=== PATIENT | female | born 1940 | race Caucasian/White ===

== ENCOUNTER → 2023-02-18 01:30 | Outpatient (BNVA) | payer BC, SELFPAY | PROVIDERS: Visit Provider Emergency Medicine | DX: N30.01 Acute cystitis with hematuria (principal) | CPT/HCPCS: 81000 ==

== ENCOUNTER 2024-01-24 13:16 | Outpatient (CLI) | payer BC, SELFPAY ==
[2024-01-24 14:09] LABS: Anion Gap 14.5 (5-19); Blood Urea Nitrogen 16 mg/dL (8-23); Calcium 9.1 mg/dL (8.5-10.5); Carbon Dioxide 26 mmol/L (22-29); Chloride 92 mmol/L (98-107); Glucose 99 mg/dL (65-115); Osmolality Calculated 265 mOsm/kg (285-295); Potassium 5.5 mmol/L (3.5-5.1); Sodium 127 mmol/L (136-145)
== END 2024-01-24 13:17 | disposition home or self-care (01) ==
DX: E87.1 Hypo-osmolality and hyponatremia (principal)
CPT/HCPCS: 36415; 80048

== ENCOUNTER 2024-02-20 14:10 | Outpatient (CLI) | payer BC, SELFPAY ==
[2024-02-20 15:12] LABS: Anion Gap 15.1 (5-19); Blood Urea Nitrogen 16 mg/dL (8-23); Calcium 8.9 mg/dL (8.5-10.5); Carbon Dioxide 26 mmol/L (22-29); Chloride 94 mmol/L (98-107); Glucose 88 mg/dL (65-115); Osmolality Calculated 271 mOsm/kg (285-295); Potassium 5.1 mmol/L (3.5-5.1); Sodium 130 mmol/L (136-145)
== END 2024-02-20 14:11 | disposition home or self-care (01) ==
LOC: LAB 14:20
DX: E87.1 Hypo-osmolality and hyponatremia (principal)
CPT/HCPCS: 36415; 80048

== ENCOUNTER 2024-03-06 14:34 | Emergency (ER) | payer MEDICARE, SELFPAY ==
[2024-03-06 15:22] VITALS: BP 114/62; PULSE 71; RESP 17; TEMP 36.8; O2SAT 100; BMI 28.7
--- NOTE | 2024-03-06 15:32 | ED_ITS ---
HPI - Back Pain/Injury General: Chief Complaint: Back Pain/Injury Stated Complaint: low back pain Time Seen by Provider: 03/06/24 15:31 History of Present Illness: 83-year-old female comes in today with l ow back pain. Patient has a history of chronic back pain due to the osteoarthritis. Patient reports that she was been visiting from [facility] and has been with her family since November. Patient reports that seems that her back pain has gotten worse since being here. Elizabeth ent does report a fall approximately 3 weeks ago onto her back. Patient appears nontoxic. Patient appears in mild pain at rest. Related Data Home Medications Medication Instructions Recorded Confirmed acetaminophen 325 mg capsule 325 mg PO QID PRN 02/18/23 02/18/23 albuterol sulfate 90 mcg/actuation 2 inh inhalation Q6H PRN 02/18/23 02/18/23 breath activated powder inhaler atorvastatin 80 mg tablet 80 mg PO DAILY 02/18/23 02/18/23 beclomethasone dipropionate 80 1 inh inhalation BID 02/18/23 02/18/23 mcg/actuation HFA breath activated aerosol (Qvar RediHaler) calcium carbonate 600 mg-vitamin cap PO 02/18/23 02/18/23 D3 62.5 mcg (2,500 unit) capsule cyanocobalamin (vitamin B-12) 1,000 mcg PO DAILY 02/18/23 02/18/23 1,000 mcg capsule cyclosporine 0.05 % eye drops in a 1 drp ophthalmic (eye) Q12H 02/18/23 02/18/23 dropperette ferrous sulfate 325 mg (65 mg 325 mg PO DAILY 02/18/23 02/18/23 iron) tablet (FeroSul) hydroxyzine HCl 25 mg tablet 25 mg PO QID PRN 02/18/23 02/18/23 levothyroxine 50 mcg capsule 50 mcg PO DAILY 02/18/23 02/18/23 levothyroxine 50 mcg tablet tab PO 02/18/23 02/18/23 lisinopril 10 mg tablet 10 mg PO BID 02/18/23 02/18/23 lisinopril 10 mg tablet tab PO 02/18/23 02/18/23 montelukast 10 mg tablet 10 mg PO DAILY 02/18/23 02/18/23 nitroglycerin 0.4 mg sublingual 0.4 mg sublingual Q5M PRN 02/18/23 02/18/23 tablet nystatin 100,000 unit/mL oral 100,000 unit PO DAILY 02/18/23 02/18/23 suspension pilocarpine HCl 5 mg tablet 5 mg PO TID 02/18/23 02/18/23 pilocarpine HCl 5 mg tablet tab PO 02/18/23 02/18/23 tiotropium bromide 2.5 2 puff inhalation DAILY 02/18/23 02/18/23 mcg/actuation mist for inhalation (Spiriva Respimat) Previous Rx's Medication Instructions Recorded cefdinir 300 mg capsule 300 mg PO BID 7 days #14 caps 02/18/23 celecoxib 100 mg capsule 100 mg PO BID #20 caps 03/06/24 Allergies Allergy/AdvReac Type Severity Reaction Status Date / Time lactose Allergy diarhhea Verified 02/18/23 14:14 Sulfa (Sulfonamide Allergy swelling Verified 02/18/23 14:14 Antibiotics) gluten meal Allergy GI upset Uncoded 02/18/23 14:14 Review of Systems General: Reports: 10 or more systems reviewed and unremarkable except in HPI and below Musc: Reports: back pain Physical Exam Const: COMMON NORMALS: alert HENMT: COMMON NORMALS: normocephalic HEAD & SCALP: normocephalic Neck/C-Spine: COMMON NORMALS: full ROM Chest: COMMONS NORMALS: normal palpation of entire chest wall Resp: COMMON NORMALS: normal respiratory effort and clear to auscultation bilaterally AUSCULTATION: clear to auscultation bilaterally Cardio: COMMON NORMALS: regular rate RATE: regular rate GI: COMMON NORMALS: non-tender Back/Pelvis: LUMBAR SPINE/LOWER BACK: Yes lumbar spinal tenderness Lumbar spinal tenderness location: L4 and L5 Extremity: COMMON NORMALS: normal to inspection Neuro: SENSORIUM/ORIENTATION: Yes alert Skin: COMMON NORMALS: turgor normal GENERAL SKIN EXAM: turgor normal Course Vital Signs: Vital signs: Vital Signs Temperature 98.3 F 03/06/24 15:22 Pulse Rate 66 03/06/24 16:31 Respiratory Rate 17 03/06/24 15:22 Blood Pressure 115/72 03/06/24 16:31 Pulse Oximetry 98 03/06/24 16:31 Oxygen Delivery Me thod Room Air 03/06/24 15:22 MDM - Back Pain/Injury Medical Decision Making 83-year-old female comes in today for complaints of low back pain. Patient reports increased back pain since arriving to [place] in November. Patient does have a history of osteoarthritis. Patient does also endorse a fall approxi mately 3 weeks ago. Patient appears nontoxic. Patient appears mild to moderate pain. Differential diagnosis includes osteoarthritis, vertebral compression fracture, intervertebral disc disease, facet arthritis. X-ray of the back noted significant degenerative disc disease but no signs of obvious fracture. Patient was given 1 [place] 5 in the emergency room for acute pain. Patient was also give n 10 mg dexamethasone. Patient will be continued on some celecoxib 100 mg twice a day to help with control of the pain. Patient knows to follow-up with primary care for further recommendations and treatment of pain. Labs Radiology Impressions Lumbar Spine X-Ray 03/06/24 15:38 Impression: There is scoliosis with diffuse degenerative disc disease of the lumbar spine. There is no anterior wedging or dominant subluxation. All radiology interpretation(s) finalized by discharge Discharge Plan Discharge Patient Disposition: Home Clinical Impression: Arthritis of facet joint of lumbar spine Condition: Stable Prescriptions: New celecoxib 100 mg capsule 100 mg PO BID Qty: 20 0RF No Action lisinopril 10 mg tablet PO pilocarpine HCl 5 mg tablet PO levothyroxine 50 mcg tablet PO acetaminophen 325 mg capsule 325 mg PO QID PRN albuterol sulfate 90 mcg/actuation aerosol powdr breath activated 2 inh inhalation Q6H PRN atorvastatin 80 mg tablet 80 mg PO DAILY calcium carbonate-vitamin D3 600 mg-62.5 mcg (2,500 unit) capsule PO cyanocobalamin (vitamin B-12) 1,000 mcg capsule 1,000 mcg PO DAILY cyclosporine 0.05 % dropperette 1 drp ophthalmic (eye) Q12H ferrous sulfate [FeroSul] 325 mg (65 mg iron) tablet 325 mg PO DAILY hydroxyzine HCl 25 mg tablet 25 mg PO QID PRN levothyroxine 50 mcg capsule 50 mcg PO DAILY lisinopril 10 mg tablet 10 mg PO BID montelukast 10 mg tablet 10 mg PO DAILY nitroglycerin 0.4 mg tablet, sublingual 0.4 mg sublingual Q5M PRN Rx Instructions: do not exceed 3 doses per episode nystatin 100,000 unit/mL suspension 100,000 unit PO DAILY Rx Instructions: administer 1/2 of dose in each side of the mouth pilocarpine HCl 5 mg tablet 5 mg PO TID Qvar RediHaler 80 mcg/actuation HFA aerosol breath activated 1 inh inhalation BID Spiriva Respimat 2.5 mcg/actuation mist 2 puff inhalation DAILY cefdinir 300 mg capsule 300 mg PO BID 7 Days Qty: 14 0RF Discharge Orders: Discharge ED (Routine); Ordered 03/06/24 Ordered By: Cayetano Valdovinos Discharge Diet: Usual diet Discharge Activity: Increase activity as tolerated Patient Instructions: Degenerative Disc Disease (ED) Activity Restrictions/Additional Instructions: Continue with acetaminophen as needed for pain. Use celecoxib for further pain and inflammation control. Drink plenty of water with medications. Follow-up with primary care for further instructions. Return to ED for new concerns. Coding Level of Care Code ED Senior Solutions Engineer for Krystal Mcnulty
--- NOTE | 2024-03-06 15:38 | XR_ITS ---
WS: [id number] Examination: XR lumbar spine 2-3V* 38243 Reason for Exam: fall injury Date: 03/06/2024 Comparison: None. Findings: The bone density is diminished. There is curvature of the spine with convexity to the right Diffuse degenerative disc disease is noted with disc space narrowing There is no anterior wedging or compression. There is no subluxation Anterior posterior osteophytes are present with prominent facet arthropathy. XR/XR lumbar spine 2-3V* [id number] Impression: There is scoliosis with diffuse degenerative disc disease of the lumbar spine. There is no anterior wedging or dominant subluxation.
[2024-03-06] MEDS: HYDROcodone-acetaminophen 5-325 mg Tablet 1 TAB PO (15:45)
[2024-03-06] MEDS: dexamethasone 10 mg/mL INJ IM (16:20)
[2024-03-06 16:31] VITALS: BP 115/72; PULSE 66; O2SAT 98
== END 2024-03-06 16:32 | disposition home or self-care (01) ==
PROVIDERS: Emergency Provider Nurse Practitioner Family
DX: M47.816 Spondylosis without myelopathy or radiculopathy, lumbar region (principal)
CPT/HCPCS: 72100; 96372; 99284; J1100

== ENCOUNTER 2025-05-19 13:07 | Emergency (ER) | payer MEDICARE, SELFPAY ==
--- NOTE | 2025-05-19 13:24 | XR_ITS ---
WS: [id number] XR chest 1V portable [id number] REASON FOR EXAM: Shortness of breath FINDINGS: Cardiac device overlying the left chest with trans left subclavian leads to the right atrium and right ventricular apex. Moderate tortuosity of the ascending and descending thoracic aorta with calcified aortic arch. Heart size is at the upper limits of normal. Elevation of the right hemidiaphragm. Calcified granulomatous disease bilaterally. No acute pulmonary parenchymal or pleural disease is identified. Mild levoscoliosis of the thoracic spine with moderate degenerative spondylosis and previous vertebroplasty in the lower thoracic spine. XR/XR chest 1V portable [id number] IMPRESSION: No acute chest abnormality.
--- NOTE | 2025-05-19 13:28 | ECG_ITS ---
[facility] Date: 2025-05-19 Pat Name: Rayna Brock Department: Room: Gender: Female Claims Director: : 1940 Requested By: Luciano Santos Order Number: [id number] Dasia MD: Lissa Lara M.D. Measurements Intervals [place] Rate: 67 P: 0 DC: 0 QRS: -73 QRSD: 134 T: 81 QT: 426 QTc: 450 Interpretive Statements ELECTRONIC VENTRICULAR PACEMAKER ABNORMAL RHYTHM ECG No previous ECG available for comparison Electronically Signed On 05-20-2025 08:51:17 SHEET COMBINING OPERATOR by Lissa Lara M.D. [email or web address] [id number]
[2025-05-19 13:30] VITALS: BP 136/87; PULSE 67; RESP 16; TEMP 36.8; O2SAT 100
[2025-05-19 13:38] LABS: Hematocrit 31.7 % (36-47); Hemoglobin 10.50 g/dL (11.27-16.99); Mean Corpuscular HGB Conc 33.1 g/dL (30-55); Mean Corpuscular Hemoglobin 34.0 pg (27-33); Mean Corpuscular Volume 102.6 fl (85-98); Nucleated Red Blood Cells % 0 %; Platelet Count 209 10^3/cmm (157-399); Red Blood Count 3.09 10^6/uL (3.85-5.65); White Blood Count 5.40 10^3/uL (3.29-11.43)
[2025-05-19 14:01] LABS: Troponin(5th) Baseline 25 ng/L (0-10)
[2025-05-19 14:02] LABS: Lactic Sepsis W/Reflex 1.0 mmol/L (0.5-2.2)
[2025-05-19 14:09] LABS: Alanine Aminotransferase 16 U/L (0-33); Albumin Level 4.4 g/dL (3.5-5.2); Alkaline Phosphatase 71 U/L (35-105); Anion Gap 17.9 (5-19); Aspartate Amino Transferase 12 U/L (0-32); Blood Urea Nitrogen 12 mg/dL (8-23); Calcium 9.1 mg/dL (8.5-10.5); Carbon Dioxide 24 mmol/L (22-29); Chloride 96 mmol/L (98-107); Globulin 2.2 g/dL (1.3-4.6); Glucose 85 mg/dL (65-115); NT Pro B Type Natriuretic Pept 1036 pg/mL (0-450); Osmolality Calculated 275 mOsm/kg (285-295); Potassium 4.9 mmol/L (3.5-5.1); Sodium 133 mmol/L (136-145); Total Protein 6.6 g/dL (6.6-8.7)
--- NOTE | 2025-05-19 14:32 | W.ED.SOB ---
HPI - SOB/Dyspnea General: Chief Complaint: Shortness of Breath/Dyspnea Stated Complaint: SOB Time Seen by Provider: 05/19/25 14:32 History of Present Illness: HPI Narrative: 84-year-old female presents emergency room chronic progressively worsening shortness of breath last several days. History of COPD she has tried using her rescue other at home several times has not been particularly helpful. Minimally productive cough no hemoptysis. No fever sweats or chills no orthopnea denies chest pain. Associated symptoms: Reports chest congestion; Deny abdominal pain, chest pain or fever(s) Related Data Home Medications ?Medication ?Instructions ?Recorded ?Confirmed acetaminophen 325 mg capsule 325 mg PO QID PRN 02/18/23 02/18/23 albuterol sulfate 90 mcg/actuation 2 inh inhalation Q6H PRN 02/18/23 02/18/23 breath activated powder inhaler atorvastatin 80 mg tablet 80 mg PO DAILY 02/18/23 02/18/23 beclomethasone dipropionate 80 1 inh inhalation BID 02/18/23 02/18/23 mcg/actuation HFA breath activated aerosol (Qvar RediHaler) calcium 600 mg (as cap PO 02/18/23 02/18/23 carbonate)-vitamin D3 62.5 mcg (2,500 unit) capsule cyanocobalamin (vitamin B-12) 1,000 mcg PO DAILY 02/18/23 02/18/23 1,000 mcg capsule cyclosporine 0.05 % eye drops in a 1 drp ophthalmic (eye) Q12H 02/18/23 02/18/23 dropperette ferrous sulfate 325 mg (65 mg 325 mg PO DAILY 02/18/23 02/18/23 iron) tablet (FeroSul) hydroxyzine HCl 25 mg tablet 25 mg PO QID PRN 02/18/23 02/18/23 levothyroxine 50 mcg capsule 50 mcg PO DAILY 02/18/23 02/18/23 levothyroxine 50 mcg tablet tab PO 02/18/23 02/18/23 lisinopril 10 mg tablet 10 mg PO BID 02/18/23 02/18/23 lisinopril 10 mg tablet tab PO 02/18/23 02/18/23 montelukast 10 mg tablet 10 mg PO DAILY 02/18/23 02/18/23 nitroglycerin 0.4 mg sublingual 0.4 mg sublingual Q5M PRN 02/18/23 02/18/23 tablet nystatin 100,000 unit/mL oral 100,000 unit PO DAILY 02/18/23 02/18/23 suspension pilocarpine HCl 5 mg tablet 5 mg PO TID 02/18/23 02/18/23 pilocarpine HCl 5 mg tablet tab PO 02/18/23 02/18/23 tiotropium bromide 2.5 2 puff inhalation DAILY 02/18/23 02/18/23 mcg/actuation mist for inhalation (Spiriva Respimat) Previous Rx's ?Medication ?Instructions ?Recorded cefdinir 300 mg capsule 300 mg PO BID 7 days #14 caps 02/18/23 celecoxib 100 mg capsule 100 mg PO BID #20 caps 03/06/24 ipratropium 0.5 mg-albuterol 3 mg 3 ml inhalation Q4H PRN shortness 05/19/25 (2.5 mg base)/3 mL nebulization of breath or wheezing #90 mL soln methylprednisolone 4 mg tablets in See Rx Instructions PO .COMPLEX 05/19/25 a dose pack (Medrol (David)) #21 ea Allergies Allergy/AdvReac Type Severity Reaction Status Date / Time gluten Allergy ADR-Gastrointestinal Verified 05/13/24 12:07 Upset lactose Allergy diarhhea Verified 02/18/23 14:14 Sulfa (Sulfonamide Allergy swelling Verified 02/18/23 14:14 Antibiotics) Review of Systems Const: Denies: fever(s) or chills Card: Denies: chest pain Resp: Reports: dyspnea, non-productive cough, wheezing and chest congestion GI: Denies: abdominal pain : Denies: dysuria, urinary frequency or urinary urgency Musc: Denies: neck pain or back pain Skin/Breast: Denies: rash PFSH ED PFSH: Medical History COPD (chronic obstructive pulmonary disease) Physical Exam Const: GENERAL APPEARANCE: cooperative ORIENTATION/CONSCIOUSNESS: Yes awake, Yes oriented to person, Yes oriented to place and Yes oriented to time HENMT: COMMON NORMALS: normocephalic, atraumatic and hearing grossly normal bilaterally HEAD & SCALP: normocephalic and atraumatic Resp: COMMON NORMALS: normal respiratory effort, No retractions and No use of accessory muscles AUSCULTATION: wheezes Cardio: COMMON NORMALS: regular rate, regular rhythm and No murmurs present (Cardio) RATE: regular rate RHYTHM: regular rhythm GI: COMMON NORMALS: Soft to palpation and No hepatosplenomegaly present AUSCULTATION: Yes normoactive bowel sounds PALPATION: Yes Soft to palpation, No Tenderness to palpation present (GI), No Guarding due to palpation present (GI) and Yes No hepatosplenomegaly present Extremity: COMMON NORMALS: normal to inspection, capillary refill normal, no clubbing, cyanosis or edema, no calf tenderness and no pedal edema Neuro: SENSORIUM/ORIENTATION: Yes oriented to person, Yes oriented to place and Yes oriented to time Skin: COMMON NORMALS: no rashes or lesions noted GENERAL SKIN EXAM: no rashes or lesions noted Course Vital Signs: Vital signs: Vital Signs Temperature 98.2 F 05/19/25 13:30 Pulse Rate 61 05/19/25 16:42 Respiratory Rate 16 05/19/25 16:42 Blood Pressure 163/96 05/19/25 16:42 Pulse Oximetry 97 05/19/25 16:42 Oxygen Delivery Me thod Room Air 05/19/25 16:03 MDM - SOB/Dyspnea Medical Decision Making Significant improvement with albuterol. No leukocytosis chest x-ray does not show any acute findings. Chemistries normal. Troponins negative. Will discharge patient home with albuterol/ipratropium bromide nebulizer to use as needed along with steroid taper. Have her follow-up with her primary care doctor. Medical Records I reviewed the patient's medical records. Lab Data I reviewed the patient's lab results. 05/19/25 13:33 05/19/25 13:33 Labs/Radiology: Radiology Impressions Chest X-Ray 05/19/25 13:24 IMPRESSION: No acute chest abnormality. Laboratory Results WBC 5.40 10^3/uL (3.29-11.43) 05/19/25 13:33 RBC 3.09 10^6/uL (3.85-5.65) L 05/19/25 13:33 Hgb 10.50 g/dL (11.27-16.99) L 05/19/25 13:33 Hct 31.7 % (36-47) L 05/19/25 13:33 MCV 102.6 fl (85-98) H 05/19/25 13:33 MCH 34.0 pg (27-33) H 05/19/25 13:33 MCHC 33.1 g/dL (30-55) 05/19/25 13:33 RDW 13.0 % (12.1-15.1) 05/19/25 13:33 Plt Count 209 10^3/cmm (157-399) 05/19/25 13:33 MPV 9.5 fL (7.4-10.4) 05/19/25 13:33 Neut % (Auto) 65.7 % 05/19/25 13:33 Lymph % (Auto) 22.8 % 05/19/25 13:33 [place] % (Auto) 7.2 % 05/19/25 13:33 Eos % (Auto) 2.8 % 05/19/25 13:33 Baso % (Auto) 1.1 % 05/19/25 13:33 Neut # (Auto) 3.55 10^3/uL (1.8-7.7) 05/19/25 13:33 Lymph # (Auto) 1.2 10^3/uL (0.8-4.8) 05/19/25 13:33 [place] # (Auto) 0.4 10^3/uL (0.2-0.9) 05/19/25 13:33 Eos # (Auto) 0.2 10^3/uL (0.0-0.8) 05/19/25 13:33 Baso # (Auto) 0.1 10^3/uL (0.0-0.1) 05/19/25 13:33 Nucleated RBC % (auto) 0 % 05/19/25 13:33 Nucleated RBCs # 0.0 /100WBC 05/19/25 13:33 Specimen Type Arterial 05/19/25 14:59 Sample Site Radial, left 05/19/25 14:59 ABG pH 7.45 (7.35-7.45) 05/19/25 14:59 ABG pCO2 37.3 mmHg (35-45) 05/19/25 14:59 ABG pO2 77.3 mmHg (80.0-100.0) L 05/19/25 14:59 ABG PO2/FiO2 Ratio 368 05/19/25 14:59 ABG HCO3 25.8 mmol/L (22-26) 05/19/25 14:59 ABG O2 Saturation 96.7 05/19/25 14:59 ABG Base Excess 1.8 mmol/L (-2.0-2.0) 05/19/25 14:59 Volodymyr Test Pos 05/19/25 14:59 A-a O2 Gradient 3.2 mmHg (5-10) L 05/19/25 14:59 Hematocrit 33.1 % (37-47) L 05/19/25 14:59 Hgb O2 Saturation 95.5 % (95-100) 05/19/25 14:59 Carboxyhemoglobin 0.9 %THgb (0.4-20.1) 05/19/25 14:59 Methemoglobin 0.3 % (0.4-1.5) L 05/19/25 14:59 Total Hemoglobin 10.8 g/dL (12-16) L 05/19/25 14:59 Sodium 129.0 mmol/L (131-143) L 05/19/25 14:59 Potassium 4.4 mmol/L (3.5-5.0) 05/19/25 14:59 Glucose 91.0 mg/dL (70-115) 05/19/25 14:59 Ionized Calcium 1.2 mmol/L (1.1-1.4) 05/19/25 14:59 O2 Delivery Device Room air 05/19/25 14:59 FiO2 21.0 % 05/19/25 14:59 Commissions Manager ID [place] 05/19/25 14:59 Sodium 133 mmol/L (136-145) L 05/19/25 13:33 Potassium 4.9 mmol/L (3.5-5.1) 05/19/25 13:33 Chloride 96 mmol/L (98-107) L 05/19/25 13:33 Carbon Dioxide 24 mmol/L (22-29) 05/19/25 13:33 Anion Gap 17.9 (5-19) 05/19/25 13:33 BUN 12 mg/dL (8-23) 05/19/25 13:33 Creatinine 0.6 mg/dL (0.5-0.9) 05/19/25 13:33 GFR Calculation Not Reportable 05/19/25 13:33 Glucose 85 mg/dL (65-115) 05/19/25 13:33 Calculated Osmolality 275 mOsm/kg (285-295) L 05/19/25 13:33 Lactic Acid 1.0 mmol/L (0.5-2.2) 05/19/25 13:33 Calcium 9.1 mg/dL (8.5-10.5) 05/19/25 13:33 Total Bilirubin 0.5 mg/dL (0.15-1.2) 05/19/25 13:33 AST 12 U/L (0-32) 05/19/25 13:33 ALT 16 U/L (0-33) 05/19/25 13:33 Alkaline Phosphatase 71 U/L (35-105) 05/19/25 13:33 Troponin T Baseline 25 ng/L (0-10) H 05/19/25 13:33 Troponin T 120 Minute 19.82 ng/L (0-10) H 05/19/25 15:19 Delta Troponin T -5.18 ABS# (0-10) L 05/19/25 15:19 NT-Pro-B Natriuret Pep 1036 pg/mL (0-450) H 05/19/25 13:33 Total Protein 6.6 g/dL (6.6-8.7) 05/19/25 13:33 Albumin 4.4 g/dL (3.5-5.2) 05/19/25 13:33 Globulin 2.2 g/dL (1.3-4.6) 05/19/25 13:33 Influenza A (PCR) Negative (Negative) 05/19/25 14:37 Influenza Type B (PCR) Negative (Negative) 05/19/25 14:37 RSV (PCR) Negative (Negative) 05/19/25 14:37 SARS-CoV-2 (PCR) Negative (Negative) 05/19/25 14:37 All radiology interpretation(s) finalized by discharge EKG Data EKG 1: I personally reviewed and interpreted this EKG as follows: Interpretation: EKG 05/19/2025 1328 paced rhythm rate of 67 QTc 450 does not meet Alfonso's criteria. No EKG available for comparison EKG 2: I personally reviewed and interpreted this EKG as follows: Interpretation: EKG 05/19/2025 1521. EKG paced rhythm at rate of 71 no acute findings no further interpretation possible does not meet Alfonso's criteria unchanged from EKG 05/19/2025 done earlier today Discharge Plan Discharge Patient Disposition: Home Clinical Impression: Acute exacerbation of chronic obstructive airways disease Condition: Stable Prescriptions: New ipratropium-albuterol 0.5 mg-3 mg(2.5 mg base)/3 mL solution for nebulization 3 ml inhalation Q4H PRN (Reason: shortness of breath or wheezing) Qty: 90 0RF methylprednisolone [Medrol (David)] 4 mg tablets,dose pack See Rx Instructions .ROUTE .COMPLEX Qty: 21 0RF Rx Instructions: orally per package directions No Action lisinopril 10 mg tablet PO pilocarpine HCl 5 mg tablet PO levothyroxine 50 mcg tablet PO acetaminophen 325 mg capsule 325 mg PO QID PRN albuterol sulfate 90 mcg/actuation aerosol powdr breath activated 2 inh inhalation Q6H PRN atorvastatin 80 mg tablet 80 mg PO DAILY calcium carbonate-vitamin D3 600 mg-62.5 mcg (2,500 unit) capsule PO cyanocobalamin (vitamin B-12) 1,000 mcg capsule 1,000 mcg PO DAILY cyclosporine 0.05 % dropperette 1 drp ophthalmic (eye) Q12H ferrous sulfate [FeroSul] 325 mg (65 mg iron) tablet 325 mg PO DAILY hydroxyzine HCl 25 mg tablet 25 mg PO QID PRN levothyroxine 50 mcg capsule 50 mcg PO DAILY lisinopril 10 mg tablet 10 mg PO BID montelukast 10 mg tablet 10 mg PO DAILY nitroglycerin 0.4 mg tablet, sublingual 0.4 mg sublingual Q5M PRN Rx Instructions: do not exceed 3 doses per episode nystatin 100,000 unit/mL suspension 100,000 unit PO DAILY Rx Instructions: administer 1/2 of dose in each side of the mouth pilocarpine HCl 5 mg tablet 5 mg PO TID Qvar RediHaler 80 mcg/actuation HFA aerosol breath activated 1 inh inhalation BID Spiriva Respimat 2.5 mcg/actuation mist 2 puff inhalation DAILY cefdinir 300 mg capsule 300 mg PO BID 7 Days Qty: 14 0RF celecoxib 100 mg capsule 100 mg PO BID Qty: 20 0RF Discharge Orders: Discharge ED (Routine); Ordered 05/19/25 Ordered By: Luciano Xiao Other Ambulatory Orders: DME: Nebulizer with Neb Kit (Order) Location: None Selected Ordered By: Luciano Xiao Discharge Diet: Usual diet Discharge Activity: Increase activity as tolerated Patient Instructions: Opioid Safety, Pain Management, Patient Portal & Keily Instructions Activity Restrictions/Additional Instructions: Thank you for choosing [facility] for your healthcare needs today. It is very important that you follow up as instructed or that you return to the Emergency Department should you have concerns or if your condition changes or worsens in any way. Emergency department visits are focused on emergent conditions, in some cases you may require further evaluation on an outpatient basis. You are seen today for exacerbation of COPD improved significantly with nebulizer treatments you were discharged home with nebulizers and a steroid taper. Case management will contact you to assist you in establishing with a primary care physician and primary care physician will make arrangements for you to see subspecialist such as cardiology and pulmonology. If you have any worsening of your condition develop fever or worsening productive cough return to the emergency room. (Please note that included in your discharge packet is information concerning opioid safety and pain management. This information is given to all patients were discharged from the ER regardless of their discharge diagnosis or the medicines they usually take or are prescribed.) Print Language: Turkish Coding Level of Care Code ED Fire Regulator for Krystal Mcnulty
[2025-05-19 14:39] VITALS: BP 155/99; PULSE 68; RESP 18; O2SAT 100
[2025-05-19 15:00] VITALS: PULSE 66; RESP 16; O2SAT 100
[2025-05-19 15:10] LABS: ABG PCO2 37.3 mmHg (35-45); ABG PH Result 7.45 (7.35-7.45); Alveolar-Arterial Oxygen Gradi 3.2 mmHg (5-10); Arterial Blood Gas Hematocrit 33.1 % (37-47); Blood Gas Allen Test Pos; Blood Gas Operator Identificat WALCI; Blood Gas Sample Site Radial, left; Blood Gas Sample Type Arterial; Carboxyhemoglobin 0.9 %THgb (0.4-20.1); Glucose Level-ABG 91.0 mg/dL (70-115); HCO3 ABG 25.8 mmol/L (22-26); Ionized Calcium Level - ABG 1.2 mmol/L (1.1-1.4); Methemoglobin 0.3 % (0.4-1.5); Oxygen Saturation ABG 96.7; PO2 ABG 77.3 mmHg (80.0-100.0); PO2 FiO2 Ratio Arterial Blood 368; Potassium Level - ABG 4.4 mmol/L (3.5-5.0); Sodium Level - ABG 129.0 mmol/L (131-143)
--- NOTE | 2025-05-19 15:21 | ECG_ITS ---
[facility] Test Date: 2025-05-19 Pat Name: Rayna Brock Department: Room: Gender: Female Receivable Executive: : 1940 Requested By: Puja Santos Order Number: [id number] Dasia MD: Lissa Lara M.D. Measurements Intervals [place] Rate: 71 P: 0 UT: 0 QRS: -74 QRSD: 142 T: 93 QT: 430 QTc: 470 Interpretive Statements ELECTRONIC VENTRICULAR PACEMAKER ABNORMAL RHYTHM ECG Compared to ECG 05/19/2025 13:28:32 No significant changes Electronically Signed On 05-21-2025 00:09:22 INSTRUMENT INSTALLER by Lissa Lara M.D. [id number] [email or web address]
[2025-05-19 15:22] VITALS: PULSE 72
[2025-05-19 15:33] LABS: Respiratory Syncytial Virus Ce NEGATIVE (Negative); SARS-CoV-2 PCR NEGATIVE (Negative)
[2025-05-19] MEDS: methylPREDNISolone sod succ 125 mg/2 mL INJ IVP (15:35)
[2025-05-19 16:03] VITALS: BP 159/61; PULSE 71; RESP 16; O2SAT 98
[2025-05-19 16:42] VITALS: BP 163/96; PULSE 61; RESP 16; O2SAT 97
[2025-05-19 16:43] LABS: Troponin 5 2HR 19.82 ng/L (0-10)
[2025-05-19 16:46] LABS: Troponin 5 2HR Delta -5.18 ABS# (0-10)
== END 2025-05-19 16:43 | disposition home or self-care (01) ==
PROVIDERS: Emergency Medicine; Emergency Provider Family Medicine
DX: J44.1 Chronic obstructive pulmonary disease with (acute) exacerbation (principal); Z11.52 Encounter for screening for COVID-19
CPT/HCPCS: 36415; 36600; 71045; 80051; 80053; 82330; 82805; 83605; 83880; 84484; 85025; 87637; 93005; 94640; 96374; 99285; J2919; J9999